=== PATIENT | female | born 1950 | race Caucasian/White ===

== ENCOUNTER 2017-05-19 18:29 | Emergency (ER) | payer BC ==
[~2017-05-19] VITALS: Ht 170.2 cm; Wt 117.3 kg
[~2017-05-19 18:29] MED LIST: ADVIL200 M2 PO; AMLODIPINE BESY10 M1 PO; ARIMIDEX1 M1 PO; CLINDAMYCIN HC300 M2 PO; COLACE100 M1 PO; IBUPROFEN100 MG/51 PO; LOTENSIN40 M1 PO; NYSTATIN100000 UNI SSW; OMEPRAZOLE20 M4 PO; PREDNISONE10 M1 PO; SYNTHROID137 MC1 PO; SYNTHROID150 MC1 PO; TYLENOL EXTRA500 M1 PO; TYLENOL SO500 MG/15 PO; [UNRECOGNIZED DRUG - OTHER] PO
[2017-05-19] MEDS ORDERED: ARIMIDEX1 M1 PO (19:08)
[2017-05-19] MEDS ORDERED: CELEBREX100 M1 PO (19:08)
[2017-05-19 19:52] LABS: BASO % 0.2 % (0-2); EOS % 0.7 % (0-7); EOSINOPHIL ABSOLUTE COUNT 0.1 tho/cmm (0.0-0.7); HCT-HEMATOCRIT 40.4 % (34.0-49.0); HGB-HEMOGLOBIN 13.9 gm/dl (12.0-15.5); IMMATURE GRANULOCYTES ABSOLUTE 0.03 tho/cmm (0-0.03); IMMATURE GRANULOCYTES PERCENT 0.3 % (0-0.3); LYMPH % 15.3 % (20-45); LYMPH ABSOLUTE COUNT 1.7 tho/cmm (0.8-4.5); MCH (MEAN CORPUSCULAR HGB) 28.5 pg (28.0-32.0); MCHC MEAN CORPUSCULAR HGB CONC 34.4 % (32.0-36.0); MEAN PLATELET VOLUME 9.3 cmc (9.4-12.4); MONO % 3.7 % (0-12); MONOCYTE ABSOLUTE COUNT 0.4 tho/cmm (0.0-1.2); NEUTROPHILS % 79.8 % (40-80); PLATELET COUNT 312 tho/cmm (150-450); RED BLOOD COUNT 4.87 mil/cmm (4.00-5.20); RED CELL DISTRIBUTION WIDTH 13.7 % (12.4-16.4); WHITE BLOOD COUNT 11.3 tho/cmm (4.0-10.0)
[2017-05-19 20:00] LABS: URINE BILIRUBIN NEGATIVE (NEG); URINE BLOOD MODERATE (NEG); URINE GLUCOSE (UA) NEGATIVE (NEG); URINE KETONE MODERATE (NEG); URINE LEUKOCYTE ESTERASE NEGATIVE (NEG); URINE NITRITE NEGATIVE (NEG); URINE PROTEIN NEGATIVE (NEG); URINE SPECIFIC GRAVITY 1.015 (1.003-1.030)
[2017-05-19 20:01] LABS: URINE APPEARANCE CLEAR; URINE COLOR YELLOW
[2017-05-19 20:11] LABS: URINE EPITHELIAL CELLS RARE /[HPF] (0-10); URINE RBC 0 /[HPF] (0-5); URINE WBC RARE /[HPF] (0-5)
[2017-05-19 20:24] LABS: ALB/GLOB RATIO 0.9 (0.8-2.0); ALBUMIN 4.1 g/dl (3.5-5.0); ALKALINE PHOSPHATASE 114 U/L (33-138); ALT/SGPT 28 U/L (12-78); ANION GAP 13 mmol/L (0-20); AST/SGOT 23 U/L (10-40); BILIRUBIN,TOTAL 0.4 mg/dl (0-1.5); BLOOD UREA NITROGEN 12 mg/dl (6-24); CALCIUM 9.3 mg/dl (8.5-10.5); CARBON DIOXIDE-VENOUS 25 mmol/L (22-32); CHLORIDE 99 mmol/l (96-110); GLUCOSE 117 mg/dL (70-110); LIPASE 87 U/L (73-393); POTASSIUM 3.9 mmol/L (3.7-5.1); SODIUM 133 mmol/L (135-145); eGFR VALUE FOR BLACK >90 mL/Min
[2017-05-19] MEDS ORDERED: TYLENOL WITH C1 EACH PO (23:23)
== END 2017-05-19 23:31 ==
LOC: EDMED 18:29
PROVIDERS: Physician Assistant
DX: K76.89 Other specified diseases of liver (principal); R31.9 Hematuria, unspecified; I10 Essential (primary) hypertension; Z90.49 Acquired absence of other specified parts of digestive tract; Z88.0 Allergy status to penicillin; Z88.5 Allergy status to narcotic agent; Z88.1 Allergy status to other antibiotic agents
CPT/HCPCS: J7030; Q9967